=== PATIENT | male | born 1975 | race African-American/Black ===

== ENCOUNTER 2019-01-05 15:34 | Emergency (ER) | payer MEDICAID ==
[~2019-01-05] VITALS: Ht 177.8 cm; Wt 75.0 kg
[2019-01-05] MEDS ORDERED: ONDANSETRON HCL 4MG/2ML INJ IV STA (17:27)
[2019-01-05] MEDS ORDERED: KETOROLAC 30MG/ML VIAL IV STA (17:27)
[2019-01-05] MEDS ORDERED: FAMOTIDINE 20MG/2ML VIAL IV STA (17:27)
[2019-01-05] MEDS ORDERED: LOPERAMIDE 2 MG/10 ML UDC PO ONE (17:30)
[2019-01-05 18:04] LABS: CHLORIDE 106 mEq/L (98-107)
[2019-01-05 18:07] LABS: INR 1.1; PROTHROMBIN TIME 11.1 sec (9.6-11.0)
[2019-01-05 18:08] LABS: HEMATOCRIT. 37.9 % (42.0-52.0); HEMOGLOBIN. 13.1 g/dL (14.0-18.0); MEAN CORPUSCULAR HEMOGLOBIN 33.4 pg (28.0-32.0); MEAN CORPUSCULAR VOLUME 96.8 fL (80.0-94.0); MEAN PLATELET VOLUME 8.7 fl (7.4-10.4); PLATELET 189 x1000/uL (130-400); RED BLOOD CELL COUNT 3.91 mill/uL (4.7-6.1); RED CELL DISTRIBUTION WIDTH 12.7 % (11.6-14.6)
[2019-01-05 19:07] VITALS: BP 119/54
[2019-01-05 19:14] LABS: PLATELET ESTIMATE NORMAL
== END 2019-01-05 19:07 | disposition home or self-care (01) ==
LOC: ER 17:28
DX: R10.9 Unspecified abdominal pain (principal); Z88.3 Allergy status to other anti-infective agents
CPT/HCPCS: 36415; 80053; 83690; 85025; 85610; 96374; 96375; 99283; J1885; J2405; J3490